=== PATIENT | female | born 1970 | race Caucasian/White ===

== ENCOUNTER 2016-06-10 13:20 | Emergency (ER) | payer OTHER ==
[2016-06-10 13:31] VITALS: BMI 33.2
[2016-06-10] MEDS ORDERED: SODIUM CHLORIDE 0.9% 1000 ML INFUS.BAG IV ONE ×2 (13:36→17:13)
[2016-06-10] MEDS ORDERED: ONDANSETRON 4 MG/2 ML VIAL IVPB ONE ×3 (13:37→22:30)
[2016-06-10] MEDS ORDERED: ONDANSETRON 4 MG/2 ML VIAL ONE ×3 (13:39→22:39)
[2016-06-10 14:25] LABS: ALBUMIN 3.8 g/dl (3.5-5.0); ALK PHOS 72 U/L (32-92); ANION GAP 6 (8-16); BILIRUBIN,TOTAL 0.6 mg/dl (0.2-1.0); CO2 26 mmol/L (22-28); CREATININE 0.8 mg/dl (0.6-1.3); GLUCOSE,RANDOM 118 mg/dl (74-106); SGOT/AST 29 U/L (10-42); SGPT/ALT 24 U/L (10-40); TOT PROT 6.6 g/dl (6.4-8.3)
[2016-06-10 14:30] LABS: BASOPHIL 0.3 % (0-2.0); EOSINOPHIL 1.4 % (0-4.5); MCHC 33.5 g/dl (32.0-36.0); MEAN CELL VOLUME 80.8 fl (80-96); MEAN PLT VOLUME 6.8 fl (7.5-11.1); NEUTROPHILS 89.7 % (42.8-82.8); PLATELET COUNT 307 K/MM3 (134-434); RDW 12.6 % (11.6-15.6); WHITE BLOOD COUNT 9.8 K/mm3 (4.0-10.0)
--- NOTE | 2016-06-10 14:58 | PDOC ---
History of Present Illness - General History Source: Patient, Significant Other Exam Limitations: No Limitations - History of Present Illness Initial Comments: 06/10/16 15:49 CHIEF COMPLAINT: Vomiting since this morning HISTORY OF PRESENT ILLNESS: This is a 45-year-old woman with a history of immune progesterone dermatitis, asthma, and cholecystectomy. Patient was feeling well until this morning when she awoke with nausea. She vomited more than 10 times with bilious fluid. There is no diarrhea. There is no fever. He did have sweating when nauseous and vomiting. She feels vague diffuse abdominal discomfort, but no rasheed pain. She mostly feels severe ongoing nausea. REVIEW OF SYSTEMS: GENERAL/CONSTITUTIONAL: No fever or chills. No weakness. No weight change. Positive sweats when vomiting. HEAD, EYES, EARS, NOSE AND THROAT: No change in vision. No ear pain or discharge. No sore throat. CARDIOVASCULAR: No chest pain or shortness of breath. RESPIRATORY: No cough, wheezing, or hemoptysis. GASTROINTESTINAL: Positive nausea with vomiting. No diarrhea or constipation. No rectal bleeding. GENITOURINARY: No dysuria, frequency, or change in urination. MUSCULOSKELETAL: No joint or muscle swelling or pain. No neck or back pain. SKIN AND BREASTS: No rash or easy bruising. NEUROLOGIC: No headache, vertigo, loss of consciousness, or loss of sensation. PSYCHIATRIC: No depression or anxiety. ENDOCRINE: Negative increased thirst with dry mouth in the setting of vomiting. No abnormal weight change. HEMATOLOGIC/LYMPHATIC: No anemia, easy bleeding, or history of blood clots. ALLERGIC/IMMUNOLOGIC: No hives or skin allergy. No latex allergy. <Prakash Ortiz - Last Filed: 06/10/16 18:42> <Reva Samuels - Last Filed: 06/10/16 20:36> - General Chief Complaint: Nausea/Vomiting Stated Complaint: VOMITING, NAUSEA, ABD PAIN Time Seen by Provider: 06/10/16 13:29 Past History - Past Medical History Asthma: Yes (SEASONAL) Thyroid Disease: Yes Other medical history: AUTOIMMUNE PROGESTERONE DERMATITIS - Surgical History Cholecystectomy: Yes - Psycho/Social/Smoking Cessation Hx Anxiety: No Suicidal Ideation: No Smoking History: Never smoked Hx Alcohol Use: No Drug/Substance Use Hx: No Substance Use Type: None <Prakash Ortiz - Last Filed: 06/10/16 18:42> <Reva Samuels - Last Filed: 06/10/16 20:36> - Past Medical History Allergies/Adverse Reactions: Allergies Allergy/AdvReac Type Severity Reaction Status Date / Time No Known Allergies Allergy Verified 06/10/16 13:24 Home Medications: Ambulatory Orders Metoclopramide HCl 10 mg PO QID #20 tablet 06/10/16 Montelukast Na [Singulair -] 10 mg PO HS 06/10/16 *Physical Exam - Vital Signs Last Vital Signs Temp Pulse Resp BP Pulse Ox 98 F 98 H 18 118/74 97 06/10/16 13:20 06/10/16 13:20 06/10/16 13:20 06/10/16 13:20 06/10/16 13:20 - Physical Exam Comments: 06/10/16 15:50 GENERAL: The patient is awake, alert, and fully oriented, in no acute distress. She is complaining of dry mouth and ongoing nausea. She has not vomited in the ED. HEAD: Normal with no signs of trauma. EYES: Pupils equal, round and reactive to light, extraocular movements intact, sclera anicteric, conjunctiva clear. ENT: Ears normal, nares patent, oropharynx clear without exudates. Moist mucous membranes. NECK: Normal range of motion, supple without lymphadenopathy, JVD, or masses. LUNGS: Breath sounds equal, clear to auscultation bilaterally. No wheezes, and no crackles. HEART: Regular rate and rhythm, normal S1 and S2 without murmur, rub or gallop. ABDOMEN: Mildly obese. No areas of focal tenderness. No McBurney's tenderness. No Casillas sign. Overall soft, nontender, normoactive bowel sounds. No guarding, no rebound. No masses. EXTREMITIES: Normal range of motion, no edema. No clubbing or cyanosis. No cords, erythema, or tenderness. NEUROLOGICAL: Cranial nerves II through XII grossly intact. Normal speech, normal gait. PSYCH: Normal mood, normal affect. SKIN: Warm, Dry, normal turgor, no rashes or lesions noted. <Prakash Ortiz - Last Filed: 06/10/16 18:42> - Vital Signs Last Vital Signs Temp Pulse Resp BP Pulse Ox 99.5 F 106 H 16 109/68 97 06/10/16 17:11 06/10/16 17:11 06/10/16 17:11 06/10/16 17:11 06/10/16 17:11 <Reva Samuels - Last Filed: 06/10/16 20:36> ED Treatment Course - LABORATORY CBC & Chemistry Diagram: 06/10/16 13:50 06/10/16 13:50 - ADDITIONAL ORDERS Additional order review: Laboratory Results 06/10/16 13:50 Sodium 135 L Potassium 4.0 Chloride 103 Carbon Dioxide 26 Anion Gap 6 L BUN 17 D Creatinine 0.8 Creat Clearance w eGFR > 60 Random Glucose 118 H Calcium 8.0 L Total Bilirubin 0.6 AST 29 D ALT 24 Alkaline Phosphatase 72 Total Protein 6.6 Albumin 3.8 Lipase 37 06/10/16 13:50 RBC 4.43 MCV 80.8 MCHC 33.5 RDW 12.6 MPV 6.8 L Neutrophils % 89.7 H D Lymphocytes % 4.1 L D Monocytes % 4.5 Eosinophils % 1.4 Basophils % 0.3 06/10/16 16:58 - Medications Given in the ED: ED Medications Discontinued Medications Generic Name Dose Route Start Last Admin Trade Name Freq PRN Reason Stop Dose Admin Ondansetron HCl 4 mg 06/10/16 13:37 06/10/16 13:41 Zofran Injection IVPB 06/10/16 13:38 4 mg ONCE ONE Administration Sodium Chloride 1,000 ml 06/10/16 13:36 06/10/16 13:50 Normal Saline - IV 06/10/16 13:37 1,000 ml ONCE ONE Administration <Prakash Ortiz - Last Filed: 06/10/16 18:42> - LABORATORY CBC & Chemistry Diagram: 06/10/16 13:50 06/10/16 13:50 - ADDITIONAL ORDERS Additional order review: Laboratory Results 06/10/16 06/10/16 14:40 13:50 Sodium 135 L Potassium 4.0 Chloride 103 Carbon Dioxide 26 Anion Gap 6 L BUN 17 D Creatinine 0.8 Creat Clearance w eGFR > 60 Random Glucose 118 H Calcium 8.0 L Total Bilirubin 0.6 AST 29 D ALT 24 Alkaline Phosphatase 72 Total Protein 6.6 Albumin 3.8 Lipase 37 Urine Color Yellow Urine Appearance Sl cloudy Urine pH 6.5 Ur Specific [place] 1.020 Urine Protein Negative Urine Glucose (UA) Negative Urine Ketones Negative Urine Blood 3+ H Urine Nitrite Negative Urine Bilirubin Negative Urine Urobilinogen 0.2 e.u/dl Ur Leukocyte Esterase Negative Urine RBC 100-200 Urine WBC 2-4 Ur Epithelial Cells Few Urine Bacteria Few Urine HCG, Qual Negative 06/10/16 13:50 RBC 4.43 MCV 80.8 MCHC 33.5 RDW 12.6 MPV 6.8 L Neutrophils % 89.7 H D Lymphocytes % 4.1 L D Monocytes % 4.5 Eosinophils % 1.4 Basophils % 0.3 - RADIOLOGY Radiograph Interpretation: 06/10/16 20:36 THIS IS A PRELIMINARY REPORT FROM [facility] DATE OF SERVICE: 2016-06-10 19:26:26.0 IMAGES: [id number] EXAM: CT abdomen and CT pelvis with intravenous and oral contrast HISTORY:Vomiting. History of cholecystectomy. COMPARISON: None. FINDINGS: Cholecystectomy clips noted. No fluid collection or stranding at the gallbladder fossa. Hepatomegaly. 1 cm cyst peripheral aspect of the right lobe of the liver. The pancreas, adrenal glands, spleen and kidneys appear within normal limits. No bowel wall thickening or obstruction. Normal appendix. No free fluid, free air or abscess. Small ventral hernia containing fat. - Medications Given in the ED: ED Medications Discontinued Medications Generic Name Dose Route Start Last Admin Trade Name Freq PRN Reason Stop Dose Admin Acetaminophen 650 mg 06/10/16 17:12 06/10/16 17:15 Tylenol - PO 06/10/16 17:13 650 mg ONCE ONE Administration Diphenhydramine HCl 25 mg 06/10/16 15:19 06/10/16 15:25 Benadryl Injection - IVPUSH 06/10/16 15:20 25 mg ONCE ONE Administration Hydromorphone HCl 0.5 mg 06/10/16 18:56 06/10/16 19:10 Dilaudid Injection - IVPUSH 06/10/16 18:57 0.5 mg ONCE ONE Administration Ketorolac Tromethamine 30 mg 06/10/16 16:06 06/10/16 16:00 Toradol Injection - IVPUSH 06/10/16 16:07 30 mg ONCE ONE Administration Metoclopramide HCl 10 mg 06/10/16 15:19 06/10/16 15:26 Reglan Injection - IVPUSH 06/10/16 15:20 10 mg ONCE ONE Administration Ondansetron HCl 4 mg 06/10/16 13:37 06/10/16 13:41 Zofran Injection IVPB 06/10/16 13:38 4 mg ONCE ONE Administration Ondansetron HCl 4 mg 06/10/16 16:14 06/10/16 16:15 Zofran Injection IVPB 06/10/16 16:15 4 mg ONCE ONE Administration Sodium Chloride 1,000 ml 06/10/16 13:36 06/10/16 13:50 Normal Saline - IV 06/10/16 13:37 1,000 ml ONCE ONE Administration Sodium Chloride 1,000 ml 06/10/16 16:06 06/10/16 16:00 Normal Saline - IV 06/10/16 16:07 1,000 ml ONCE ONE Administration Sodium Chloride 1,000 ml 06/10/16 17:13 06/10/16 17:15 Normal Saline - IV 06/10/16 17:14 1,000 ml ONCE ONE Administration <Reva Samuels - Last Filed: 06/10/16 20:36> Medical Decision Making - Medical Decision Making 06/10/16 16:58 Patient presents with nausea and vomiting multiple times today. She vomited more than 10 times. No diarrhea. Her abdominal examination has improved with IV fluids and antiemetics. There has been no further vomiting in the ED. Laboratory studies reviewed. White blood cell count normal. No significant electrolyte up maladies. Repeat evaluation reveals patient with no abdominal pain. Repeat examination is soft and nontender throughout the abdomen. There has been no vomiting in the ED. Impression: Gastroenteritis. Benign abdominal examination. Vomiting resolved with medications. Plan: Patient received 2 L of IV fluid and antiemetic medications. She will be discharged with antiemetics. 06/10/16 17:00 The scribe's documentation has been prepared under my direction and personally reviewed by me in its entirety. I have confirmed that the note above accurately reflects all work, treatment, procedures, and medical decision- making performed by me. 06/10/16 18:42 Patient has recurrent pain at this time. She remains tachycardic. Even her history of prior cholecystectomy, CT scan to be performed to rule out bowel obstruction. Patient endorsed to Dr. Huggins at [address] scan pending. <Prakash Ortiz - Last Filed: 06/10/16 18:42> *DC/Admit/Observation/Transfer - Discharge Dispostion Admit: No <Prakash Ortiz - Last Filed: 06/10/16 18:42> <Reva Samuels - Last Filed: 06/10/16 20:36> Diagnosis at time of Disposition: Acute gastroenteritis - Discharge Dispostion Condition at time of disposition: Fair - Prescriptions Prescriptions: Metoclopramide HCl 10 mg PO QID #20 tablet - Referrals Referrals: Phil Priest MD [Primary Care Provider] - - Patient Instructions
[2016-06-10 15:07] LABS: PH,URINE 6.5 (4.5-8); URINE BILIRUBIN Negative (NEGATIVE); URINE GLUCOSE (UA) Negative (NEGATIVE); URINE KETONE Negative (NEGATIVE); URINE LEUK ESTERASE Negative (NEGATIVE); URINE NITRITE Negative (NEGATIVE); URINE PROTEIN Negative (NEGATIVE); URINE UROBILINOGEN 0.2 E.U/dl (0.2-1.0)
[2016-06-10 15:11] LABS: URINE APPEARANCE SL CLOUDY; URINE BLOOD 3+ (NEGATIVE); URINE COLOR YELLOW
[2016-06-10] MEDS ORDERED: METOCLOPRAMIDE HCL INJECTION 10 MG/2 ML VIAL IVPUSH ONE (15:19)
[2016-06-10] MEDS ORDERED: KETOROLAC TROMETHAMINE 30 MG/1 ML VIAL ONE (15:58)
[2016-06-10] MEDS ORDERED: KETOROLAC TROMETHAMINE 30 MG/1 ML VIAL IVPUSH ONE (16:06)
[2016-06-10] MEDS ORDERED: SODIUM CHLORIDE 0.9% 500 ML INFUS.BAG IV ONE (16:06)
[2016-06-10 16:42] LABS: URINE RBC 100-200 /hpf (0-3)
[2016-06-10 16:43] LABS: URINE BACTERIA FEW /hpf (NEGATIVE)
[2016-06-10] MEDS ORDERED: ACETAMINOPHEN 325 MG TABLET (FP) ONE (17:08)
[2016-06-10] MEDS ORDERED: ACETAMINOPHEN 325 MG TABLET (FP) PO ONE (17:12)
[2016-06-10] MEDS ORDERED: HYDROmorphone HCL CARPU-JECT 1 MG/1 ML DISP.SYRIN IVPUSH ONE (18:56)
[2016-06-10] MEDS ORDERED: HYDROmorphone HCL CARPU-JECT 2 MG/1 ML DISP.SYRIN ONE (19:02)
[2016-06-10 20:44] VITALS: BP 106/65; PULSE 99; TEMP 97.6
[2016-06-10] MEDS ORDERED: SODIUM CHLORIDE 500 ML IV STA (21:04)
--- NOTE | 2016-06-10 22:29 | PDOC ---
*Physical Exam - Vital Signs Last Vital Signs Temp Pulse Resp BP Pulse Ox 97.6 F 99 H 20 106/65 99 06/10/16 20:42 06/10/16 20:42 06/10/16 20:42 06/10/16 20:42 06/10/16 20:42 ED Treatment Course - LABORATORY CBC & Chemistry Diagram: 06/10/16 13:50 06/10/16 13:50 - ADDITIONAL ORDERS Additional order review: Laboratory Results 06/10/16 06/10/16 14:40 13:50 Sodium 135 L Potassium 4.0 Chloride 103 Carbon Dioxide 26 Anion Gap 6 L BUN 17 D Creatinine 0.8 Creat Clearance w eGFR > 60 Random Glucose 118 H Calcium 8.0 L Total Bilirubin 0.6 AST 29 D ALT 24 Alkaline Phosphatase 72 Total Protein 6.6 Albumin 3.8 Lipase 37 Urine Color Yellow Urine Appearance Sl cloudy Urine pH 6.5 Ur Specific [place] 1.020 Urine Protein Negative Urine Glucose (UA) Negative Urine Ketones Negative Urine Blood 3+ H Urine Nitrite Negative Urine Bilirubin Negative Urine Urobilinogen 0.2 e.u/dl Ur Leukocyte Esterase Negative Urine RBC 100-200 Urine WBC 2-4 Ur Epithelial Cells Few Urine Bacteria Few Urine HCG, Qual Negative 06/10/16 13:50 RBC 4.43 MCV 80.8 MCHC 33.5 RDW 12.6 MPV 6.8 L Neutrophils % 89.7 H D Lymphocytes % 4.1 L D Monocytes % 4.5 Eosinophils % 1.4 Basophils % 0.3 - Medications Given in the ED: ED Medications Discontinued Medications Generic Name Dose Route Start Last Admin Trade Name Guillermo PRN Reason Stop Dose Admin Acetaminophen 650 mg 06/10/16 17:12 06/10/16 17:15 Tylenol - PO 06/10/16 17:13 650 mg ONCE ONE Administration Diphenhydramine HCl 25 mg 06/10/16 15:19 06/10/16 15:25 Benadryl Injection - IVPUSH 06/10/16 15:20 25 mg ONCE ONE Administration Hydromorphone HCl 0.5 mg 06/10/16 18:56 06/10/16 19:10 Dilaudid Injection - IVPUSH 06/10/16 18:57 0.5 mg ONCE ONE Administration Sodium Chloride 500 mls @ 500 mls/hr 06/10/16 21:04 06/10/16 21:10 Normal Saline - IV 06/10/16 22:03 500 mls/hr ASDIR STA Administration Ketorolac Tromethamine 30 mg 06/10/16 16:06 06/10/16 16:00 Toradol Injection - IVPUSH 06/10/16 16:07 30 mg ONCE ONE Administration Metoclopramide HCl 10 mg 06/10/16 15:19 06/10/16 15:26 Reglan Injection - IVPUSH 06/10/16 15:20 10 mg ONCE ONE Administration Ondansetron HCl 4 mg 06/10/16 13:37 06/10/16 13:41 Zofran Injection IVPB 06/10/16 13:38 4 mg ONCE ONE Administration Ondansetron HCl 4 mg 06/10/16 16:14 06/10/16 16:15 Zofran Injection IVPB 06/10/16 16:15 4 mg ONCE ONE Administration Sodium Chloride 1,000 ml 06/10/16 13:36 06/10/16 13:50 Normal Saline - IV 06/10/16 13:37 1,000 ml ONCE ONE Administration Sodium Chloride 1,000 ml 06/10/16 16:06 06/10/16 16:00 Normal Saline - IV 06/10/16 16:07 1,000 ml ONCE ONE Administration Sodium Chloride 1,000 ml 06/10/16 17:13 06/10/16 17:15 Normal Saline - IV 06/10/16 17:14 1,000 ml ONCE ONE Administration Progress Note - Progress Note Progress Note: care of this patient received from Dr. Ortiz. The patient felt comfortable without further nausea after receiving an additional 500 mL normal saline IVand 4 mg Zofran IV She will be dischargedwith instructions to maintain clear liquids and advance diet cautiously. Prescription for [id number] mg has been sent to pharmacy. She should return to ER if symptoms are severe; otherwise she should follow-up with within the next 3 days *DC/Admit/Observation/Transfer Diagnosis at time of Disposition: Acute gastroenteritis - Discharge Dispostion Disposition: HOME Condition at time of disposition: Stable - Prescriptions Prescriptions: Metoclopramide HCl 10 mg PO QID #20 tablet - Referrals Referrals: Phil Priest MD [Primary Care Provider] - - Patient Instructions Printed Discharge Instructions: Viral Gastroenteritis Additional Instructions: sips of clear liquids; advance diet cautiously Reglan 10mg as needed every 6 hours for nausea return to ER if vomiting, pain recurs followup with Dr Priest within 2-3 days - Post Discharge Activity
== END 2016-06-10 22:50 | disposition home or self-care (01) ==
LOC: FER 13:20
PROC: 3E033GC Introduction of Other Therapeutic Substance into Peripheral Vein, Percutaneous Approach (ICD-10-PCS; principal; 2016-06-10)
PROC: 3E0333Z Introduction of Anti-inflammatory into Peripheral Vein, Percutaneous Approach (ICD-10-PCS; 2016-06-10)
PROC: 3E033NZ Introduction of Analgesics, Hypnotics, Sedatives into Peripheral Vein, Percutaneous Approach (ICD-10-PCS; 2016-06-10)
PROC: 3E0337Z Introduction of Electrolytic and Water Balance Substance into Peripheral Vein, Percutaneous Approach (ICD-10-PCS; 2016-06-10)
DX: K52.9 Noninfective gastroenteritis and colitis, unspecified (principal); L30.8 Other specified dermatitis; E07.9 Disorder of thyroid, unspecified; J45.998 Other asthma
CPT/HCPCS: 36415; 74177-TC; 80053; 81003; 81015; 83690; 84703; 85025; 99285-25